=== PATIENT | male | born 1955 | race Caucasian/White ===

== ENCOUNTER 2017-07-08 09:18 | Emergency (ER) | payer OTHER ==
[~2017-07-08] VITALS: Ht 172.7 cm; Wt 85.3 kg
== END 2017-07-08 14:10 | disposition home or self-care (01) ==
LOC: ER 09:18 → CPU-OBS 09:24 → ER 14:10
DX: R07.89 Other chest pain (principal); M25.512 Pain in left shoulder; M71.58 Other bursitis, not elsewhere classified, other site
CPT/HCPCS: G0379; 93005